=== PATIENT | female | born 1960 ===

== ENCOUNTER → 2020-12-22 | Outpatient (CLI) | payer OTHER ==
--- NOTE | 2020-12-22 13:41 | KCIC ---
EXAM: CT coronary artery calcium screening; radiologist over read. HISTORY: Family history of heart disease. Hyperlipidemia. TECHNIQUE: Computed tomographic images of the chest were obtained without contrast. Multiplanar refor matting was performed. *One or more of the following individualized dose reduction techniques were utilized for this examina tion: 1. Automated exposure control. 2. Adjustment of the mA and/or kV according to patient size. 3. Use of iterative reconstruction technique. COMPARISON: None. FINDINGS: The heart is normal in size. The aorta is normal in caliber. There is no lymphadenopathy. T here is no infiltrate, pleural effusion or pneumothorax. There is no suspicious pulmonary nodule. The re is basilar and posterior dependent atelectasis. Coronary artery calcium score: 0. IMPRESSION: 1. Coronary artery calcium score of 0. No identifiable plaque. 2. No significant incidental thoracic finding. Electronically signed by: Dolores Rousseau MD (12/22/2020 1:38 PM) [facility]
== END ==
LOC: KCIC CT 08:48
PROVIDERS: ATTEND Family Medicine
DX: Z13.6 Encounter for screening for cardiovascular disorders (principal); E78.5 Hyperlipidemia, unspecified; Z82.49 Family history of ischemic heart disease and other diseases of the circulatory system
CPT/HCPCS: 75571